=== PATIENT | male | born 1965 | race American Indian/Alaskan Native ===

== ENCOUNTER 2017-10-18 17:23 | Emergency (ER) | payer BC ==
[2017-10-18] MEDS ORDERED: ASPIRIN PO ONE (17:32)
[2017-10-18 17:45] LABS: Basophils % (Auto) 0.6 % (0.0-1.8); Eosinophils # (Auto) 0.5 K/mm3 (0.0-0.4); Eosinophils % (Auto) 6.7 % (0.0-4.3); Hematocrit 41.3 % (35.5-45.6); Hemoglobin 13.9 gm/dl (11.8-15.2); Lymphocytes # (Auto) 3.1 K/mm3 (1.2-5.4); Lymphocytes % (Auto) 44.8 % (13.4-35.0); Mean Corpuscular HGB Conc 34 % (32-34); Mean Corpuscular Hemoglobin 32 pg (28-32); Mean Corpuscular Volume 94 fl (84-94); Monocytes # (Auto) 0.4 K/mm3 (0.0-0.8); Monocytes % (Auto) 5.6 % (0.0-7.3); Platelet Count 266 K/mm3 (140-440); Red Blood Count 4.39 M/mm3 (3.65-5.03); Red Cell Distribution Width 14.6 % (13.2-15.2)
[2017-10-18] MEDS ORDERED: BABY ASPIRIN PO ONE (17:58)
--- NOTE | 2017-10-18 17:58 | Emergency Department Report ---
Chief Complaint: Chest Pain Stated Complaint: chest - HPI History of Present Illness: I had the pleasure of meeting Mr. Heller. He presents with chest pain. He feels that the chest pain is attributed to GERD. He describes heartburn. However patient does have hypertension, hyperlipidemia. No family history of coronary disease. With abnormal EKG seen by physician colleague, he was referred to the ED for further evaluation. 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 - Exam Vital Signs: Vital Signs 10/18/17 17:27 Temperature 97.8 F Pulse Rate 74 Respiratory 18 Rate Blood Pressure 143/92 O2 Sat by Pulse 98 Oximetry MSE screening note: Focused history and physical exam performed. Due to findings the following was ordered: ED Medical Decision Making - Lab Data Result diagrams: 10/18/17 17:33 ED Disposition for MSE Condition: Stable
[2017-10-18 18:06] LABS: BUN/Creatinine Ratio 14; Blood Urea Nitrogen 14 mg/dL (9-20); Calcium 9.5 mg/dL (8.4-10.2); Hemolysis Index 14
--- NOTE | 2017-10-18 18:46 | Emergency Department Report ---
<DONTE ADKINS - Last Filed: 10/18/17 18:42> ED Chest Pain HPI - General Chief Complaint: Chest Pain Stated Complaint: chest Source: patient Mode of arrival: Ambulatory Limitations: No Limitations - History of Present Illness Initial Comments: mR. Smith has a history of hypertension and hyperlipidemia. He had heartburn- like chest pain beginning Saturday night. He noticed the discomfort morning. He attributed to heartburn to ingestion of vinegar milk simultaneously. He denies any chest discomfort at this point. He works as a [employer] and our hospital. He came to the ER for screening EKG. - Related Data Home Medications Medication Instructions Recorded Confirmed Last Taken Hydrochlorothiazide [HCTZ] 25 mg PO QDAY 07/13/16 07/16/16 1 Month Ago ~06/15/16 Lisinopril 40 mg PO DAILY 07/13/16 07/16/16 07/16/16 06:00 Tadalafil [Cialis] 5 mg PO DAILY 07/13/16 07/16/16 07/14/16 Previous Rx's Medication Instructions Recorded Last Taken Type Amoxicillin 1 cap PO Q8HR #15 capsule 07/16/16 Unknown Rx HYDROcodone/APAP 7.5-325 [[place] 1 each PO Q8HR PRN #14 tablet 07/16/16 Unknown Rx 7.5/325] Promethazine [Phenergan TAB] 12.5 mg PO Q8HR PRN #7 tab 07/16/16 Unknown Rx Aspirin EC [Aspirin Enteric Coated 81 mg PO QDAY 30 Days #30 tablet. 10/18/17 Unknown Rx TAB] Allergies Allergy/AdvReac Type Severity Reaction Status Date / Time No Known Allergies Allergy Verified 10/18/17 17:27 Heart Score - HEART Score History: Slightly suspicious EKG: Non-specific Age: 45-65 Risk factors: 1-2 risk factors Troponin: < normal limit HEART Score: 3 ED Review of Systems ROS: Stated complaint: chest Other details as noted in HPI Comment: All other systems reviewed and negative Constitutional: denies: fever, malaise Respiratory: denies: cough Cardiovascular: chest pain ED Past Medical Hx - Past Medical History Hx Hypertension: Yes (10YRS) Hx GERD: Yes (MILD) Additional medical history: VALVE NOT CLOSING - Surgical History Past Surgical History?: Yes Additional Surgical History: NASAL SURG - Social History Smoking Status: Never Smoker Substance Use Type: None, Alcohol - Medications Home Medications: Home Medications Medication Instructions Recorded Confirmed Last Taken Type Hydrochlorothiazide [HCTZ] 25 mg PO QDAY 07/13/16 07/16/16 1 Month Ago History ~06/15/16 Lisinopril 40 mg PO DAILY 07/13/16 07/16/16 07/16/16 06:00 History Tadalafil [Cialis] 5 mg PO DAILY 07/13/16 07/16/16 07/14/16 History Amoxicillin 1 cap PO Q8HR #15 capsule 07/16/16 Unknown Rx HYDROcodone/APAP 7.5-325 [[place] 1 each PO Q8HR PRN #14 tablet 07/16/16 Unknown Rx 7.5/325] Promethazine [Phenergan TAB] 12.5 mg PO Q8HR PRN #7 tab 07/16/16 Unknown Rx Aspirin EC [Aspirin Enteric Coated 81 mg PO QDAY 30 Days #30 tablet. 10/18/17 Unknown Rx TAB] ED Physical Exam - General Limitations: No Limitations General appearance: alert, in no apparent distress - Head Head exam: Present: atraumatic, normocephalic - Eye Eye exam: Present: normal appearance - ENT ENT exam: Present: normal orophraynx, mucous membranes moist - Neck Neck exam: Present: normal inspection - Respiratory Respiratory exam: Present: normal lung sounds bilaterally. Absent: respiratory distress, wheezes - Cardiovascular Cardiovascular Exam: Present: regular rate, normal rhythm. Absent: systolic murmur, diastolic murmur, rubs, gallop - GI/Abdominal GI/Abdominal exam: Present: soft, normal bowel sounds. Absent: distended, tenderness, guarding - Rectal Rectal exam: Present: deferred - Extremities Exam Extremities exam: Present: normal inspection - Back Exam Back exam: Present: normal inspection - Neurological Exam Neurological exam: Present: alert, oriented X3 - Psychiatric Psychiatric exam: Present: normal affect, normal mood - Skin Skin exam: Present: warm, dry, intact, normal color. Absent: rash ED Course Vital Signs 10/18/17 10/18/17 10/18/17 17:27 18:59 20:27 Temperature 97.8 F Pulse Rate 74 Respiratory 18 20 Rate Blood Pressure 143/92 149/93 O2 Sat by Pulse 98 Oximetry ED Medical Decision Making - Lab Data Result diagrams: 10/18/17 17:33 10/18/17 17:33 - Medical Decision Making With atypical chest pain and normal troponin, Dr. Muñoz cardiologists recommended follow-up on Saturday. Heart score 3. Awaiting second troponin and second EKG. My colleague will discharge patient if both are unchanged from previous. Critical care attestation.: If time is entered above; I have spent that time in minutes in the direct care of this critically ill patient, excluding procedure time. ED Disposition Clinical Impression: Abnormal EKG Disposition: - TO HOME OR SELFCARE Is pt being admited?: No Does the pt Need Aspirin: Yes Condition: Stable Additional Instructions: Take aspirin 81 mg daily until you see your wildlife protector. Return to ER if having further chest pain. Prescriptions: Aspirin EC [Aspirin Enteric Coated TAB] 81 mg PO QDAY 30 Days #30 tablet. Referrals: BRITTANY MORRISON MD [Staff Physician] - [facility] Forms: Work/School Release Form(ED) <BOZENA ELAINE - Last Filed: 10/18/17 20:58> LEX score - Lex Score Age > 65: (0) No Aspirin use within the Past 7 Days: (0) No ED Medical Decision Making - Lab Data Result diagrams: 10/18/17 17:33 10/18/17 17:33 ED Disposition Is pt being admited?: No Does the pt Need Aspirin: Yes
[2017-10-18 20:33] VITALS: BP 149/93
== END 2017-10-18 21:00 | disposition home or self-care (01) ==
LOC: ED 17:23
DX: R07.9 Chest pain, unspecified (principal); R94.31 Abnormal electrocardiogram [ECG] [EKG]; I10 Essential (primary) hypertension; K21.9 Gastro-esophageal reflux disease without esophagitis
CPT/HCPCS: 36415; 80048; 84484; 85025; 93005; 93010

== ENCOUNTER 2019-07-10 09:13 | Outpatient (CLI) | payer SELFPAY ==
[2019-07-10 09:39] LABS: Hematocrit 43.7 % (35.5-45.6); Hemoglobin 14.6 gm/dl (11.8-15.2); Mean Corpuscular HGB Conc 34 % (32-34); Mean Corpuscular Volume 93 fl (84-94); Platelet Count 279 K/mm3 (140-440); Red Cell Distribution Width 14.6 % (13.2-15.2)
[2019-07-10 10:14] LABS: Alanine Aminotransferase 33 units/L (7-56); Albumin 4.8 g/dL (3.9-5); BUN/Creatinine Ratio 11; Blood Urea Nitrogen 10 mg/dL (9-20); Calcium 9.7 mg/dL (8.4-10.2); Chol/HDL Ratio 4.77 %; HDL Cholesterol 54 mg/dL (40-59); Hemolysis Index 3; LDL Cholesterol,Direct 186 mg/dL (50-130)
== END 2019-07-10 09:14 | disposition home or self-care (01) ==
LOC: LAB 09:13
DX: Z12.5 Encounter for screening for malignant neoplasm of prostate (principal); I10 Essential (primary) hypertension; K21.9 Gastro-esophageal reflux disease without esophagitis
CPT/HCPCS: 36415; 80053; 80061; 83036; 84153; 84402; 84443; 85027

== ENCOUNTER 2020-07-01 09:00 | Outpatient (CLI) | payer BC ==
[2020-07-01 10:36] LABS: Hematocrit 41.4 % (35.5-45.6); Hemoglobin 14.1 gm/dl (11.8-15.2); Mean Corpuscular HGB Conc 34 % (32-34); Mean Corpuscular Volume 93 fl (84-94); Platelet Count 196 K/mm3 (140-440); Red Blood Count 4.44 M/mm3 (3.65-5.03); Red Cell Distribution Width 13.9 % (13.2-15.2)
[2020-07-01 11:08] LABS: Alanine Aminotransferase 53 units/L (7-56); Albumin 4.6 g/dL (3.9-5); BUN/Creatinine Ratio 12; Blood Urea Nitrogen 11 mg/dL (9-20); Calcium 9.9 mg/dL (8.4-10.2); Chol/HDL Ratio 6.46 %; HDL Cholesterol 39 mg/dL (40-59); Hemolysis Index 4; LDL Cholesterol,Direct 185 mg/dL (50-130)
== END 2020-07-01 09:01 | disposition home or self-care (01) ==
LOC: LAB 09:00
DX: Z00.00 Encounter for general adult medical examination without abnormal findings (principal)
CPT/HCPCS: 36415; 80053; 80061; 83036; 84153; 84402; 84443; 85027